=== PATIENT | female | born 1945 | race Caucasian/White ===

== ENCOUNTER → 2020-01-28 11:14 | Outpatient (BNVA) | payer MEDICARE, BC, SELFPAY | PROVIDERS: PCP Nurse Practitioner Family; Visit Provider Internal Medicine Rheumatology | DX: M15.4 Erosive (osteo)arthritis (principal); Z79.899 Other long term (current) drug therapy; M79.7 Fibromyalgia; B19.20 Unspecified viral hepatitis C without hepatic coma; Z79.1 Long term (current) use of non-steroidal anti-inflammatories (NSAID) | CPT/HCPCS: 36415; 80076; 82306; 82565; 82784; 83516; 85025; 85651; 86140; 86431; 87522; 99203 ==

== ENCOUNTER → 2020-03-25 11:11 | Outpatient (BNVA) | payer MEDICARE, BC, SELFPAY | PROVIDERS: PCP Nurse Practitioner Family; Visit Provider Internal Medicine Rheumatology | DX: M19.041 Primary osteoarthritis, right hand (principal); M79.7 Fibromyalgia; Z79.899 Other long term (current) drug therapy; B19.20 Unspecified viral hepatitis C without hepatic coma; M81.0 Age-related osteoporosis without current pathological fracture; M19.042 Primary osteoarthritis, left hand; Z79.1 Long term (current) use of non-steroidal anti-inflammatories (NSAID); M19.90 Unspecified osteoarthritis, unspecified site; M85.871 Other specified disorders of bone density and structure, right ankle and foot | CPT/HCPCS: 73130; 73630; 99214 ==

== ENCOUNTER 2020-03-25 13:31 | Outpatient (CLI) | payer MEDICARE, BC, SELFPAY ==
--- NOTE | 2020-03-25 13:42 | XR_ITS ---
WS: [id number] LEFT FOOT: 3 VIEW(S) TECHNIQUE: AP, oblique and lateral. HISTORY: osteoarthritis COMPARISON: None available. No acute fracture or dislocation. Erosive changes involving the medial cuneiform and the proximal first metatarsal. Mild narrowing of t he interphalangeal joints. Diffuse osteopenia. Mild flattening of the arch of the foot. XR/XR foot LT min 3V* [id number] IMPRESSION: Mild erosive and productive changes at the first tarsal metatarsal joint. Consi melody erosive osteoarthritis. No metatarsal head erosions.
--- NOTE | 2020-03-25 13:42 | XR_ITS ---
WS: [id number] RIGHT HAND: 3 VIEW(S) TECHNIQUE: PA, oblique and lateral. HISTORY: osteoarthritis COMPARISON: None available. No acute fracture or dislocation. Severe narrowing of the interphalangeal joint spaces. Erosive and productive changes at the interphal angeal joints. Partial subluxation and mild narrowing of the first carpometacarpal joint. Mild erosiv e changes involving the distal ulna. Chondrocalcinosis at the metacarpal phalangeal joints. Soft tiss ue nodules at the IP joints and osteopenia. XR/XR hand RT min 3V* [id number] IMPRESSION: Severe changes of osteoarthritis with possible overlying erosive arthritis and chondrocalcinosis.
--- NOTE | 2020-03-25 13:42 | XR_ITS ---
WS: [id number] LEFT HAND: 3 VIEW(S) TECHNIQUE: PA, oblique and lateral. HISTORY: osteoarthritis COMPARISON: None available. No acute fracture or dislocation. Severe arthritis involving the interphalangeal joint spaces in the first carpal metacarpal joint. Mix ed lytic and productive changes at the IP joints. There is diffuse osteopenia. Erosions identified at the metacarpal heads and also at the interphalangeal joints. Additional joint space narrowing and cy stic changes in the carpal bones. XR/XR hand LT min 3V* [id number] IMPRESSION: Severe changes of arthritis, consider erosive arthritis.
--- NOTE | 2020-03-25 13:42 | XR_ITS ---
WS: [id number] RIGHT FOOT: 3 VIEW(S) TECHNIQUE: AP, oblique and lateral. HISTORY: osteoarthritis COMPARISON: None available. No acute fractures. Extensive prior fixation hardware involving the first metatarsal and also fusion across the second PIP joint with screw fixation. Fusion across the interphalangeal joints of the thir d toe. Diffuse osteopenia. Mild loss of the normal arch of the foot. XR/XR foot RT min 3V* [id number] IMPRESSION: 1. Severe osteopenia. 2. Fusion hardware first metatarsal and second toe.
== END 2020-03-25 13:32 | disposition home or self-care (01) ==
LOC: RADWPI 13:37
PROVIDERS: PCP Nurse Practitioner Family; Visit Provider Internal Medicine Rheumatology
DX: M19.90 Unspecified osteoarthritis, unspecified site (principal); M85.871 Other specified disorders of bone density and structure, right ankle and foot
CPT/HCPCS: 73130; 73630

== ENCOUNTER → 2021-09-08 14:31 | Outpatient (BNVA) | payer MEDICARE, BC, SELFPAY | PROVIDERS: PCP Nurse Practitioner Family; Visit Provider Internal Medicine Rheumatology | DX: M15.4 Erosive (osteo)arthritis (principal); M79.7 Fibromyalgia | CPT/HCPCS: 99213 ==